=== PATIENT | male | born 1960 | race Caucasian/White ===

== ENCOUNTER 2020-03-13 16:34 | Day surgery (SDC) | payer SELFPAY ==
[2020-03-13] VITALS (9 sets, daily range): BP systolic 104–150; BP diastolic 67–93; PULSE 61–78; TEMP 97.6–97.8
[~2020-03-13] VITALS: Ht 185.4 cm; Wt 117.9 kg
[~2020-03-13 16:34] MED LIST: NO HOME MEDICATIONS; PRINIVIL2.5 MG
[2020-03-13] MEDS ORDERED: TESTIM1% TP (17:23)
[2020-03-13] MEDS ORDERED: CIALIS2.5 MG PO (17:52)
[2020-03-13] MEDS ORDERED: PRILOTC PO (17:53)
--- NOTE | 2020-03-13 18:20 | NUR ---
PATIENT ADMISSION ASSESSMENT COMPLETE. CONSENT FORM FOR SURGERY SIGNED AND ON PATIENT CHART. ZOSYN INFUSING TO LEFT AC IV. LR TO GRAVITY FLOW TUBING PREPPED FOR SURGERY. PATIENT TAKEN TO PERIOP VIA BED.
--- NOTE | 2020-03-13 19:12 | NUR ---
REPORT GIVEN TO MICAH LAGUERRE.
--- NOTE | 2020-03-13 20:25 | NUR ---
Pt arrived to the floor at 2019. Pt vitals were within normal limits. Pt lungs sounds were clear, heart sounds were normal S1 and S2 sounds. Pt has no complaints of pain at this time pt stated that he feels better than her did before surgery. Pt currently has LR running and he has on SCD pumps at the time. Pt call light is within reach and his bed is in lowest position.
--- NOTE | 2020-03-13 22:00 | NUR ---
Pt had a good night. Pt did not have any complaints of pain. Pt was able to void this morning around 0330. This void was unmeasured. Pt has been tolerating fluids very well during the night as well as ice chips. Pt ambulated very well with stand by assistance. Pt is currently INT he is tolerating fluids very well. Pt has his call light within reach and his bed is in lowest position.
[2020-03-14 00:05] VITALS: BP 114/67; PULSE 62; PULSE 67
[2020-03-14 00:42] VITALS: BP 104/67; PULSE 58
[2020-03-14 04:11] VITALS: BP 125/79; PULSE 66; TEMP 97.8
[2020-03-14 05:00] VITALS: BP 125/79; PULSE 66; TEMP 97.8
[2020-03-14 07:04] LABS: BASO % 0.1 % (0.0-2.0); GRAN # 7.1 (1.4-6.5); GRAN % 88.1 % (42.2-75.2); HEMATOCRIT 44.6 % (42.0-52.0); HEMOGLOBIN 15.2 g/dl (13.5-18.0); LYMPH # 0.7 (1.2-3.4); LYMPH % 9.2 % (20.0-51.0); MEAN CELL VOLUME 88 fl (80.0-100.0); MEAN CORPUSCULAR HEMOGLOBIN 30 pg (27.0-31.0); MEAN CORPUSCULAR HGB CONC 34 g/dl (33.0-37.0); MONO # 0.2 (0.1-0.6); MONO % 2.2 % (1.7-9.3); PLATELET COUNT 171 K/mm3 (130-400); RED BLOOD COUNT 5.08 M/mm3 (4.20-5.60); REDCELL DISTRIBUTION WIDTH-CV 13.8 % (11.5-14.5)
--- NOTE | 2020-03-14 07:25 | NUR ---
Reported off to Irvni Paez. Pt has his call light and his bed is in lowest position.
[2020-03-14 07:47] VITALS: BP 105/64; PULSE 67; TEMP 97.4
--- NOTE | 2020-03-14 10:39 | NUR ---
Patient alert and oriented, answers questions appropriately. See assessment. Abdomen soft, non tender, non distended. Bowel sounds active x4 quads. +Flatus. Lap sites to abdomen with edges well approximated, no redness or drainage noted. Post op exercises reviewed. No c/o at this time.
[2020-03-14] MEDS ORDERED: AMOXICILLIN 8751 TAB PO (11:29)
[2020-03-14] MEDS ORDERED: NORCO 325 MG-51 TAB PO (11:29)
[2020-03-14 12:07] VITALS: BP 129/74; PULSE 63; TEMP 97.5
--- NOTE | 2020-03-14 12:08 | NUR ---
First visit from the orchid transplanter. No needs right now.
--- NOTE | 2020-03-14 13:46 | NUR ---
Discharge instructions reviewed with patient, verbalized understanding. Discharged wheelchair to auto/home with spouse at 1345.
== END 2020-03-14 13:45 | disposition home or self-care (01) ==
LOC: SDCO 16:34 → SURG 18:22 → SDCO 03-14 13:45
PROVIDERS: Surgery
DX: K35.891 Other acute appendicitis without perforation, with gangrene (principal); E29.1 Testicular hypofunction; K21.9 Gastro-esophageal reflux disease without esophagitis; Z79.899 Other long term (current) drug therapy
CPT/HCPCS: OP; J0330; J1100; J1885; J2250; J2405; J2543; J2704; J3010; J7042; J7120; Q9967

== ENCOUNTER 2020-09-21 12:13 | Emergency (ER) | payer OTHER ==
[~2020-09-21] VITALS: Ht 185.4 cm; Wt 122.7 kg
[~2020-09-21 12:13] MED LIST changes: +AMOXICILLIN 8751 TAB PO; +CIALIS2.5 MG PO; +NORCO 325 MG-51 TAB PO; +PRILOTC PO; +TESTIM1% TP
[2020-09-21 12:22] VITALS: TEMP 97.6
[2020-09-21 12:41] LABS: BASO % 0.4 % (0.0-2.0); EOS % 0.2 % (0-4.0); GRAN # 4.8 (1.4-6.5); HEMATOCRIT 48.7 % (42.0-52.0); LYMPH # 2.9 (1.2-3.4); LYMPH % 34.6 % (20.0-51.0); MEAN CELL VOLUME 85 fl (80.0-100.0); MEAN CORPUSCULAR HEMOGLOBIN 30 pg (27.0-31.0); MEAN CORPUSCULAR HGB CONC 35 g/dl (33.0-37.0); MEAN PLATELET VOLUME 11.1 fl (7.4-10.4); MONO # 0.7 (0.1-0.6); MONO % 8.3 % (1.7-9.3); PLATELET COUNT 234 K/mm3 (130-400); RED BLOOD COUNT 5.74 M/mm3 (4.20-5.60); REDCELL DISTRIBUTION WIDTH-CV 12.9 % (11.5-14.5)
[2020-09-21 12:46] LABS: ALANINE AMINOTRANSFERASE 34 U/L (4-49); ALBUMIN 4.7 gm/dL (3.5-5.0); ALKALINE PHOSPHATASE 66 U/L (50-136); ANION GAP 11 mmol/L (7-16); AST,SGOT 35 U/L (15-37); BILIRUBIN,TOTAL 0.8 mg/dL (0.0-1.0); BLOOD UREA NITROGEN 18 mg/dL (9-20); CALCIUM 9.5 mg/dL (8.4-10.2); CARBON DIOXIDE 24 mmol/L (22-30); CHLORIDE 103 mmol/L (98-107); CREATININE, serum 1.15 (0.66-1.25); GLUCOSE 114 mg/dL (74-106); LIPASE 111 U/L (23-300); POTASSIUM 4.1 mmol/L (3.4-5.0); SODIUM 138 mmol/L (137-145); TOTAL PROTEIN 7.6 gm/dL (6.4-8.2)
[2020-09-21 12:47] LABS: PROTHROMBIN TIME 10.9 SECONDS (9.7-12.8)
[2020-09-21 12:49] LABS: PARTIAL THROMBOPLASTIN TIME 32.2 SECONDS (26.0-37.0)
[2020-09-21 12:58] LABS: TROPONIN-I < 0.012 ng/mL (0.000-0.035)
[2020-09-21 15:34] VITALS: BP 118/70; PULSE 65
== END 2020-09-21 15:34 | disposition home or self-care (01) ==
LOC: COL.ER 12:13
PROVIDERS: Family Medicine
DX: R10.13 Epigastric pain (principal); Z90.49 Acquired absence of other specified parts of digestive tract; Z87.19 Personal history of other diseases of the digestive system
CPT/HCPCS: C9113; J1885

== ENCOUNTER 2021-03-20 05:37 | Day surgery (SDC) | payer BC ==
[~2021-03-20] VITALS: Ht 185.4 cm; Wt 123.6 kg
[2021-03-20] VITALS (8 sets, daily range): BP systolic 115–140; BP diastolic 72–90; PULSE 53–76; TEMP 97–97.9
[2021-03-20] MEDS ORDERED: CIALIS5 MG PO (06:02)
[2021-03-20] MEDS ORDERED: TESTOST TP (06:04)
[2021-03-20] MEDS ORDERED: NORCO 325 MG-51 TAB PO (09:03)
--- NOTE | 2021-03-20 10:00 | NUR ---
Paient returns to room 7 per cart and arouses to verbal stimuli. Temp 97.6 and sats 97% on 2L per nasal cannula. Incisions x4 on abdomen intact with wound edges well approximated. Incisions covered with Exofin. IV fluids infusing at TKO #18G LH. Siderails up x2 and call light in reach. Friend Mahnaz in room. Allowed to rest.
--- NOTE | 2021-03-20 10:15 | NUR ---
Resting with eyes closed when not disturbed.
--- NOTE | 2021-03-20 10:30 | NUR ---
Continues to rest with eyes closed when not disturbed.
--- NOTE | 2021-03-20 10:45 | NUR ---
Resting and offers no complaints of pain or nausea.
--- NOTE | 2021-03-20 11:00 | NUR ---
Continues to rest without complaints of pain or nausea.
--- NOTE | 2021-03-20 11:30 | NUR ---
Oxygen removed and sats down to 87-88%. O2 back on at 2L and sats up to 95%. Will continue with oxgyen and encourage deep breathing. Patient is less drowsy.
--- NOTE | 2021-03-20 11:45 | NUR ---
More awake and eating pudding. Friend Mahnaz in the room.
--- NOTE | 2021-03-20 12:10 | NUR ---
Assisted up to the bathroom and gait steady. Voids large amounts and returns to room. IV discontinued and site is free of redness. Patient dresses self. Room air sats now 95% with activity. States that he feels less drowsy and more awake and is ready to go home.
--- NOTE | 2021-03-20 12:35 | NUR ---
Patient and friend Mahnaz given dismissal instructions and voices understanding of these. Instructed that [place] script sent to pharmacy.
--- NOTE | 2021-03-20 12:41 | NUR ---
Patient dismissed to home driven by friend Mahnaz and taken to the front door per wheelchair and assisted into vehicle with dismissal instructions in hand.
== END 2021-03-20 12:41 | disposition home or self-care (01) ==
LOC: SDCO 05:37
DX: K80.10 Calculus of gallbladder with chronic cholecystitis without obstruction (principal); Z20.822 Contact with and (suspected) exposure to COVID-19; K42.9 Umbilical hernia without obstruction or gangrene; M62.08 Separation of muscle (nontraumatic), other site; K40.90 Unilateral inguinal hernia, without obstruction or gangrene, not specified as recurrent; K21.9 Gastro-esophageal reflux disease without esophagitis
CPT/HCPCS: J0690; J1100; J1170; J1885; J2405; J2550; J2704; J3010; J7120

== ENCOUNTER 2021-08-28 05:24 | Day surgery (SDC) | payer BC ==
[~2021-08-28] VITALS: Ht 185.4 cm; Wt 123.8 kg
[~2021-08-28 05:24] MED LIST changes: +CIALIS5 MG PO; +TESTOST TP
[2021-08-28 06:19] VITALS: BP 135/78; PULSE 61; TEMP 97.6
[2021-08-28] MEDS ORDERED: NORCO 325 MG-51 TAB PO (10:19)
[2021-08-28 11:15] VITALS: BP 131/79; PULSE 65; TEMP 98.7
--- NOTE | 2021-08-28 11:15 | NUR ---
Pt returns to [facility] from PACU, drowsy but easily arousable. 2L/NC in place. Pt with sleep apnea and will uses CPAP at home for naps and at night. VSS. Pt reports mild discomfort but tolerable at this time. Call light in reach, girlfriend brought to bedside, pt tolerating sips of water at this time.
[2021-08-28 11:30] VITALS: BP 136/78; PULSE 60
[2021-08-28 11:45] VITALS: BP 141/79; PULSE 73
--- NOTE | 2021-08-28 11:45 | NUR ---
Pt has been resting and denies needs, provided a few crackers. O2 removed and will continue to monitor. Call light in reach.
[2021-08-28 12:00] VITALS: BP 135/76; PULSE 57
--- NOTE | 2021-08-28 12:15 | NUR ---
Pt tolerates crackers well, pain medication given per orders. VSS. Denies nausea. Call light in reach.
[2021-08-28 12:30] VITALS: BP 130/75; PULSE 67
--- NOTE | 2021-08-28 13:00 | NUR ---
Pt up at bedside with crutches and able to use urinal, voids without difficulty and pain tolerable, mild oozing to left upper bandaid, gauze and new bandaid applied, abdominal binder and scrotal support in place from OR. Pt gets dressed.
--- NOTE | 2021-08-28 13:30 | NUR ---
Pt and girlfriend given discharge instructions and understanding verbalized. Pt taken out via wheelchair and left in care of his girlfriend.
== END 2021-08-28 13:30 | disposition home or self-care (01) ==
LOC: SDCO 05:24
DX: K40.90 Unilateral inguinal hernia, without obstruction or gangrene, not specified as recurrent (principal); K42.9 Umbilical hernia without obstruction or gangrene; K21.9 Gastro-esophageal reflux disease without esophagitis; E66.9 Obesity, unspecified; G47.33 Obstructive sleep apnea (adult) (pediatric); Z99.89 Dependence on other enabling machines and devices; Z90.49 Acquired absence of other specified parts of digestive tract; Z79.899 Other long term (current) drug therapy; Z20.822 Contact with and (suspected) exposure to COVID-19
CPT/HCPCS: C1781; J0690; J1100; J1885; J2370; J2405; J2704; J3010; J7050; J7120

== ENCOUNTER 2021-12-12 11:38 | Emergency (ER) | payer BC ==
[~2021-12-12] VITALS: Ht 185.4 cm; Wt 118.6 kg
[2021-12-12 14:41] VITALS: BP 122/86; PULSE 86; TEMP 100.5
== END 2021-12-12 14:44 | disposition home or self-care (01) ==
LOC: COL.ER 11:38
DX: B34.9 Viral infection, unspecified (principal); Z20.822 Contact with and (suspected) exposure to COVID-19